=== PATIENT | male | born 1945 | race Caucasian/White ===

== ENCOUNTER 2024-02-25 14:17 | Emergency (ER) | payer MEDICARE ==
[~2024-02-25] VITALS: Ht 177.8 cm; Wt 61.4 kg
[2024-02-25 14:26] VITALS: TEMP 88.4
[2024-02-25] MEDS ORDERED: NS 1,000 ML IV ONE (15:15)
[2024-02-25 15:39] LABS: ALBUMIN 3.3 g/dL (3.4-4.8); CALCIUM 9.7 mg/dL (8.4-10.2); CREATININE, serum 1.72 mg/dL (0.72-1.25); POTASSIUM 5.1 mEq/L (3.5-4.5); TOTAL PROTEIN 6.7 g/dl (6.2-8.1)
[2024-02-25 15:42] LABS: HEMOGLOBIN 9.8 g/dl (13.5-18.0)
[2024-02-25] MEDS ORDERED: Ondansetron 4 MG/2 ML VIAL IV ONE (16:00)
[2024-02-25] MEDS ORDERED: TRANSDERM-0.5 MG/21 TD (17:23)
[2024-02-25] MEDS ORDERED: DULCOLAX S10 MG/SUPP RC (17:23)
[2024-02-25] MEDS ORDERED: SYSTANE 0.4%-0.1 SOL OU (17:23)
[2024-02-25] MEDS ORDERED: ATIVAN 1MG T1 MG/TAB PO (17:24)
[2024-02-25] MEDS ORDERED: ROXANOL 20MG20 MG/ML SL (17:24)
[2024-02-25 18:19] VITALS: BP 109/58; PULSE 73
[2024-02-27 09:01] LABS: LYMPHOCYTE 9 % (20.0-51.0); NEUTROPHILS 82 % (42.0-75.2)
[2024-02-27 09:02] LABS: EOSINOPHIL 1 % (0-4)
[2024-02-27 09:04] LABS: PATHOLOGY DIFF REVIEW OK +
== END 2024-02-25 18:19 | disposition hospice, inpatient (51) ==
LOC: COL.ER 14:17
PROVIDERS: Physician Assistant
DX: C79.51 Secondary malignant neoplasm of bone (principal); C25.9 Malignant neoplasm of pancreas, unspecified; R74.01 Elevation of levels of liver transaminase levels
CPT/HCPCS: J7030